=== PATIENT | male | born 1945 | race Caucasian/White ===

== ENCOUNTER 2019-09-23 23:54 | Emergency (ER) | payer MEDICARE, BC ==
[~2019-09-23] VITALS: Ht 175.3 cm; Wt 70.8 kg
--- NOTE | 2019-09-24 00:10 | NUR ---
PT AAOX4. AMBULATORY. PT C/O FOREHEAD ABRASION S/P SLIP AND FALL. PT DENIED KO. RR EVEN AND UNLABORED. PERRLA. PLACED ON MONTIOR AND PULSE OX. WILL CONTINUE TO MONITOR.
--- NOTE | 2019-09-24 00:46 | NUR ---
PT JAMIE TO CT
--- NOTE | 2019-09-24 00:52 | NUR ---
PT BROUGHT BACK FROM CT
[2019-09-24] MEDS ORDERED: GELATIN SPONGE,ABSORBABLE 1 SPONGE SPONGE TP ONE (01:07)
--- NOTE | 2019-09-24 01:15 | NUR ---
EMT AT BEDSIDE FOR WOUND CARE.
--- NOTE | 2019-09-24 02:12 | NUR ---
Patient discharged to home in stable condition. Verbal after care instructions given (system down, unable to print ACI). Patient verbalizes understanding of instruction. Pt ambulatory with a steady gait
[2019-09-24 02:19] VITALS: BP 135/79
== END 2019-09-24 02:15 | disposition home or self-care (01) ==
LOC: ER 09-24 00:01
DX: S01.80XA Unspecified open wound of other part of head, initial encounter (principal); S09.8XXA Other specified injuries of head, initial encounter; E11.9 Type 2 diabetes mellitus without complications; W01.198A Fall on same level from slipping, tripping and stumbling with subsequent striking against other object, initial encounter; Y93.89 Activity, other specified; Y92.89 Other specified places as the place of occurrence of the external cause; Y99.8 Other external cause status
CPT/HCPCS: 70450; 99284; A6403